=== PATIENT | male | born 1965 | race African-American/Black ===

== ENCOUNTER 2021-11-06 21:48 | Emergency (ER) | payer OTHER ==
[2021-11-06 21:52] VITALS: BP 157/89; PULSE 75; TEMP 97.8; BMI 30.7
== END 2021-11-06 22:55 | disposition home or self-care (01) ==
LOC: JER 21:48
DX: K59.00 Constipation, unspecified (principal)
CPT/HCPCS: 99282-25

== ENCOUNTER 2022-10-07 19:01 | Emergency (ER) | payer OTHER ==
[2022-10-07 19:17] VITALS: BP 152/95; PULSE 97; RESP 20; TEMP 99.4; BMI 30.9
[2022-10-07] MEDS ORDERED: ACETAMINOPHEN 500 MG TABLET (FP) PO ONE (20:02)
[2022-10-07] MEDS ORDERED: ACETAMINOPHEN 500 MG TABLET (FP) ONE (20:04)
[2022-10-07] MEDS ORDERED: IBUPROFEN 600 MG TABLET (FP) PO ONE ×2 (21:07→21:12)
== END 2022-10-07 23:04 | disposition home or self-care (01) ==
LOC: JERFT 19:01
DX: H10.33 Unspecified acute conjunctivitis, bilateral (principal); R51.9 Headache, unspecified; J06.9 Acute upper respiratory infection, unspecified
CPT/HCPCS: 0241U-QW; 70450-TC; 99284-25